=== PATIENT | male | born 1960 | race Caucasian/White ===

== ENCOUNTER → 2019-06-20 16:03 | Outpatient (CLI) | payer MEDICARE, SELFPAY ==
--- NOTE | 2019-06-20 16:17 | XR_ITS ---
PROCEDURE: XR CHEST 2V CLINICAL HISTORY: SOB Shortness of breath COMPARISON: No exams were available for comparison FINDINGS: The cardiomediastinal silhouette and pulmonary vascularity are within normal limits. Granuloma right lung base. Minimal atelectatic or fibrotic change left lung base. The remaining lungs are clear. There is a neuro stimulator device present. The tip is not visible on the film but is projected toward the neck. There are degenerative changes in the thoracic spine. No acute bony abnormalities. IMPRESSION: No acute findings. Dictated by: Pancho Marquez MD 06/20/2019 21:58 Electronically signed by Pancho Marquez MD in [place] 06/20/2019 21:58
== END ==
PROVIDERS: PCP Family Medicine; Visit Provider Family Medicine
DX: R06.02 Shortness of breath (principal)
CPT/HCPCS: 71046

== ENCOUNTER 2020-11-10 15:24 | Emergency (ER) | payer MEDICARE, SELFPAY ==
[2020-11-10 15:40] VITALS: BP 128/79; PULSE 87; RESP 19; TEMP 37; O2SAT 95; BMI 35.6
--- NOTE | 2020-11-10 16:12 | HMH.EDUTC ---
[facility] [place] Disposition Clinical Impression: Right ear impacted cerumen Disposition: Home, Self-Care Condition on Discharge: Good Instructions: How to Instill Ear Drops, DI for Cerumen Impaction Additional Instructions: Use the ear drops as directed. Return or follow up for any continued problems. Follow up with your primary care doctor. GO TO THE ER FOR ANY WORSENING SYMPTOMS OR CONCERNS. Prescriptions: Neomycin/Polymyxin B Sulf/Hc [Tnbwnwzn-Opzyknpvv-MX Otic Susp 10mL] 3 drops EAR-RIGHT TID 7 Days #1 bottle Transmission Status: Received by [facility] #[id number] Referrals: Penelope Bruce [Primary Care Provider] - Time of Disposition: 16:14 Medical Decision Making - Medical Records Medical records reviewed: No: I reviewed the patient's medical records. - Blayne Inquiry Pt receiving controlled substance: No Vital Signs: 11/10/20 15:40 11/10/20 16:16 Temperature 98.6 F 98.6 F Temperature Source Oral Pulse Rate 87 Pulse Rate [Right Brachial] 87 Respiratory Rate 19 19 Blood Pressure 128/79 Blood Pressure [Right Arm] 128/79 Blood Pressure Mean [Right Arm] 95 Blood Pressure Source [Right Arm] Automatic Cuff Blood Pressure Position [Right Arm] Sitting 02 Sat by Pulse Oximetry 95 Oxygen Delivery Method Room Air [facility] [place] HPI - General Time Seen by Provider: 11/10/20 15:40 Mode of Arrival: Ambulatory Source of Information: Patient Limitations: No Limitations Description of Symptoms (Recalled from Triage Doc. by RN): PATIENT C/O RIGHT EAR PAIN X 1 WEEK HEENT Symptoms (Recalled from RN notes): Yes Resp Symptoms (Recalled from RN notes): No Skin Symptoms (Recalled from RN notes): No MS Symptoms (Recalled from RN notes): No Functional Status (Recalled from RN notes): WNL - History of Present Illness Provider Complaint: He states that he has had decreased hearing and right ear discomfort for the past 3 days. He has a history of having cerumen impactions. He denies any fever or chills. - Related Data Home Medications Medication Instructions Recorded Confirmed amantadine HCl 100 mg capsule 100 mg PO BID 08/16/19 11/04/19 carbidopa 50 mg-levodopa 200 1 tab PO TID 08/16/19 11/04/19 mg-entacapone 200 mg tablet donepezil 10 mg tablet 10 mg PO DAILY 08/16/19 11/04/19 escitalopram oxalate 10 mg tablet 10 mg PO DAILY 08/16/19 11/04/19 finasteride 5 mg tablet 5 mg PO DAILY 08/16/19 11/04/19 furosemide 20 mg tablet 20 mg PO DAILY tab 08/16/19 11/04/19 pramipexole 1 mg tablet 1 mg PO TID tab 08/16/19 11/04/19 tamsulosin 0.4 mg capsule 0.4 mg PO DAILY 08/16/19 11/04/19 Previous Rx's Medication Instructions Recorded Neomycin/Polymyxin B Sulf/Hc 3 drops EAR-RIGHT TID 7 Days #1 11/10/20 [Xnyvtngl-Whwnzqtlh-BH Otic Susp bottle 10mL] Allergies Allergy/AdvReac Type Severity Reaction Status Date / Time acetaminophen Allergy Intermediate Verified 11/04/19 14:25 [From [facility] with Codeine] codeine Allergy Intermediate Verified 11/04/19 14:25 [From [facility] with Codeine] Sulfa (Sulfonamide Allergy Intermediate Verified 11/04/19 14:25 Antibiotics) - Worker's Comp Is this a Worker's Comp case?: No [facility] History - Hepatitis A Screen Drug use history?: No High risk sexual behaviors?: No History of sexually transmitted infection?: No Currently employed?: No Childcare worker?: No Do you have indoor plumbing?: Yes Do you have electricity?: Yes Attestation statement:: This patient has been screened for Hepatitis A risk factors. I have reviewed the patient's past medical history: Yes Medical History: Reports:: Hiatal Hernia Other Medical History: Reports: Arthritis Comment: Parkinson's disease Other Surgeries: Yes: No Previous Surgery, Hernia Repair Amputation: No Fractures: No Comment: deep brain stimulator, - Social History Smoking Status: Never smoker Alcohol Intake: never Substance Use Type: denies use Occupational Status: other Housing: hous
[2020-11-10 16:16] VITALS: BP 128/79; PULSE 87; RESP 19; TEMP 37; O2SAT 98
== END 2020-11-10 16:20 | disposition home or self-care (01) ==
PROVIDERS: Emergency Provider Nurse Practitioner Family; PCP Physician Assistant
DX: H61.21 Impacted cerumen, right ear (principal); G20 Parkinson's disease; Z88.2 Allergy status to sulfonamides; Z88.6 Allergy status to analgesic agent
CPT/HCPCS: G0463; 99202

== ENCOUNTER 2020-11-16 14:17 | Emergency (ER) | payer MEDICARE, SELFPAY ==
[2020-11-16 14:30] VITALS: BP 133/75; PULSE 83; RESP 23; TEMP 36.4; O2SAT 93; BMI 37.7
[2020-11-16 14:50] LABS: Apearance,Urine Clear (Clear); Bilirubin,Urine Negative (Negative); Blood, Urine Negative (Negative); Color,Urine Yellow (Yellow); Glucose,Urine (UA) Negative (Negative); Ketones,Urine Negative (Negative); Protein,Urine Negative (Negative); Specific Gravity, Urine 1.025 (1.005-1.030); UTC Leukocyte Esterase,Urine Negative (Negative); UTC Nitrate,Urine Negative (Negative); Urobilinogen,Urine 0.2 EU/dl (0.2)
[2020-11-16 14:51] LABS: Microscopic, Urine URINE MICROSCOPIC (MICROSCOPIC)
--- NOTE | 2020-11-16 14:54 | PC.NURSE ---
PATIENT SENT TO ER PER KAYLA ROSENBAUM APRN FOR FURTHER EVALUATION. REPORT GIVEN TO Jina MARTINEZ RN
[2020-11-16 14:58] LABS: Appearance,Urine CLEAR (Clear); Bilirubin,Urine Negative (Negative); Blood, Urine Negative (Negative); Color,Urine YELLOW (Yellow); Glucose,Urine (UA) Negative (Negative); Ketones,Urine Negative (Negative); Leukocyte Esterase,Urine Negative (Negative); Nitrate,Urine Negative (Negative); PH,Urine 5.5 (5.0-8.5); Protein,Urine Negative (Negative); Specific Gravity, Urine 1.025 (1.005-1.030); Urobilinogen,Urine 0.2 EU/dl (0.2)
--- NOTE | 2020-11-16 15:06 | CT_ITS ---
PROCEDURE: CT HEAD/BRAIN WO CON CLINICAL INDICATION: fall w/confusion COMPARISON: No exams were available for comparison TECHNIQUE: Axial images obtained. All CT scans at the facility use one or more dose reduction, viz: automated exposure control, ma/kV adjustment per patient size (including targeted exams where dose is matched to indication, i.e. head), or iterative reconstruction technique. FINDINGS: Deep brain stimulator leads are noted in the bilateral thalami. No intra or extra-axial hemorrhage, space occupying lesion or acute infarct. The ventricles are normal in size, shape and symmetry. The issa-white matter differentiation is within normal limits. Brain parenchymal volume is appropriate for the age of the patient. Minor atherosclerotic vascular calcification. Visualized osseous structures are unremarkable. Mastoid air cells are unremarkable. Mucous retention cyst in the left maxillary sinus is partially visualized. IMPRESSION: No acute intracranial process. Deep brain stimulator leads are noted bilaterally. Dictated by: Tameka Leggett 11/16/2020 15:50 Tameka Leggett in [place] 11/16/2020 15:50
[2020-11-16 15:07] VITALS: BP 133/75; PULSE 80; RESP 16; TEMP 36.4; O2SAT 94; BMI 37.6
--- NOTE | 2020-11-16 15:14 | HMH.EDFALL ---
ED Disposition Clinical Impression: Concussion without loss of consciousness Qualifiers: Encounter type: initial encounter Qualified Code(s): S06.0X0A - Concussion without loss of consciousness, initial encounter Disposition: Home, Self-Care Condition on Discharge: Good Instructions: How to Prevent Falls Referrals: Penelope Bruce [Primary Care Provider] - - Critical Care Critical Care Time: No Attestation: On 11/16/20, the high probability of a clinically significant, sudden or life threatening deterioration of the following system(s) required my full and direct attention, intervention and personal management. The time I documented below is in addition to time spent performing reported procedures but includes the following listed in this critical care notation. Medical Decision Making - Medical Records Medical records reviewed: Yes: I reviewed the patient's medical records. - Blayne Inquiry Pt receiving controlled substance: No Vital Signs: 11/16/20 14:30 11/16/20 15:07 Temperature 97.6 F 97.6 F Temperature Source Oral Oral Pulse Rate [Right Brachial] 83 80 Respiratory Rate 23 16 Blood Pressure [Right Arm] 133/75 133/75 Blood Pressure Mean [Right Arm] 94 94 Blood Pressure Source [Right Arm] Automatic Cuff Automatic Cuff Blood Pressure Position [Right Arm] Sitting 02 Sat by Pulse Oximetry 93 L 94 L Oxygen Delivery Method Room Air Room Air - Lab Data Lab Results 11/16/20 14:27: Urine Color Yellow, Urine Appearance Clear, Urine pH 5.0, Ur Specific [place] 1.025, Urine Protein Negative, Urine Glucose (UA) Negative, Urine Ketones Negative, Urine Blood Negative, Urine Nitrate Negative, Urine Bilirubin Negative, Urine Urobilinogen 0.2, Ur Leukocyte Esterase Negative 11/16/20 14:40: Urine Color Yellow, Urine Appearance Clear, Urine pH 5.5, Ur Specific [place] 1.025, Urine Protein Negative, Urine Glucose (UA) Negative, Urine Ketones Negative, Urine Blood Negative, Urine Nitrate Negative, Urine Bilirubin Negative, Urine Urobilinogen 0.2, Ur Leukocyte Esterase Negative, Urine RBC None, Urine WBC 3-5, Ur Squamous Epith Cells 3-5, Urine Bacteria 1+, Urine Mucus 1+ 11/16/20 15:05: WBC 8.2, RBC 4.86, Hgb 14.9, Hct 42.8, MCV 88.2, MCH 30.6, MCHC 34.7, RDW 14.2, Plt Count 292, MPV 7.7, Neut % (Auto) 66.1, Lymph % (Auto) 26.6, [place] % (Auto) 4.7, Eos % (Auto) 1.9, Baso % (Auto) 0.8, Neut # (Auto) 5.4, Lymph # (Auto) 2.2, [place] # (Auto) 0.4, Eos # (Auto) 0.2, Baso # (Auto) 0.1 11/16/20 15:05: Sodium 139, Potassium 3.8, Chloride 104, Carbon Dioxide 27, Anion Gap 11.8, BUN 20, Creatinine 0.80, Estimated Creat Clear 175, Estimated GFR 99, Est GFR ( Amer) 119, Glucose 127 H, Calcium 9.6, Total Bilirubin 0.8, AST 42, ALT 12, Alkaline Phosphatase 59, Total Protein 7.5, Albumin 4.6, Globulin 2.9, Albumin/Globulin Ratio 1.6 Result diagrams: 11/16/20 15:05 11/16/20 15:05 - CT Data CT Scan: Head Time Received: 16:[address] Reviewed: Yes: I have reviewed the patient's CT results, I have viewed the radiologist's interpretation Findings Narrative: IMPRESSION: No acute intracranial process. Deep brain stimulator leads are noted bilaterally. - Reevaluation(s) Time: 16:04 Reevaluation #1: On reevaluation, patient is feeling fine. There is no urinary tract infection. CT unremarkable. Patient is to follow-up with neurology. Given strict return precautions. Verbalized understanding. Medical Decision Narrative: 60-year-old male presented to the emergency department after accidental fall. Patient is having some confusion. Meets imaging criteria for the head. Work-up initiated. Fall HPI - General Chief Complaint: Fall Stated Complaint: poss UTI Time Seen by Provider: 11/16/20 14:35 Mode of Arrival: Wheelchair Source of Information: Patient, Significant Other, Relative Limitations: No Limitations Description of Symptoms (Recalled from ER Triage Doc. by RN): SPOKE WITH PATIENT'S ON PHONE. SHE STATES THAT LEDY
[2020-11-16 15:16] LABS: Bacteria,Urine 1+ /lpf; Mucus,Urine 1+ /lpf
[2020-11-16 15:26] LABS: Basophils # 0.1 K/mm3 (0-0.2); Basophils % 0.8 % (0.1-2.0); Eosinophils # 0.2 K/mm3 (0.0-0.4); Eosinophils % 1.9 % (0.1-12.0); Hematocrit 42.8 % (42.0-52.0); Hemoglobin 14.9 g/dL (14.1-18.0); Lymphocytes # 2.2 K/mm3 (0.7-4.5); Lymphocytes % 26.6 % (10-50); Mean Corpuscular HGB Conc 34.7 g/dL (31.8-35.4); Mean Corpuscular Hemoglobin 30.6 pg (27.0-31.2); Mean Corpuscular Volume 88.2 fl (80-94); Mean Platelet Volume 7.7 fl (7.4-10.4); Monocytes # 0.4 K/mm3 (0.1-1.0); Monocytes % 4.7 % (1.7-9.3); Neutrophils # 5.4 K/mm3 (1.8-7.8); Neutrophils % 66.1 % (37.0-80.0); Platelet Count 292 K/mm3 (142-424); Red Blood Count 4.86 M/mm3 (4.60-6.20); Red Cell Distribution Width 14.2 % (11.5-17.5); White Blood Count 8.2 K/mm3 (4.8-10.8)
[2020-11-16 15:28] LABS: Chloride 104 mmol/L (98-107); Potassium 3.8 mmoL/L (3.5-5.1); Sodium 139 mmol/L (136-145)
[2020-11-16 15:30] LABS: Alanine Aminotransferase 12 U/L (12-78); Aspartate Amino Transferase 42 U/L (17-59); Blood Urea Nitrogen 20 mg/dl (9-20); Creatinine Clearance Estimated 175 mL/min (50-200); Estimated Glomerular Filt Rate 99 ml/min (>60); GFR (African American) 119 ML/MIN (>60)
[2020-11-16 15:31] LABS: Albumin Level 4.6 g/dl (3.5-5.0); Albumin/Globulin Ratio 1.6 (1.1-1.8); Alkaline Phosphatase 59 U/L (38-126); Anion Gap 11.8 mEq/L (5-15); Bilirubin,Total 0.8 mg/dl (0.2-1.3); Calcium 9.6 mg/dl (8.4-10.2); Carbon Dioxide 27 mmol/L (22.0-30.0); Globulin 2.9 g/dL (1.3-3.2); Glucose 127 mg/dl (74-100); Total Protein,Serum 7.5 g/dl (6.3-8.2)
--- NOTE | 2020-11-16 16:20 | PC.NURSE ---
pt assisted to restroom
[2020-11-16 16:54] VITALS: BP 123/84; PULSE 83; RESP 20; TEMP 36.4; O2SAT 94
== END 2020-11-16 16:55 | disposition home or self-care (01) ==
LOC: UTC 14:22 → ER 14:55
PROVIDERS: Emergency Medicine; Emergency Provider Nurse Practitioner Family; PCP Physician Assistant
DX: S06.0X0A Concussion without loss of consciousness, initial encounter (principal); W01.0XXA Fall on same level from slipping, tripping and stumbling without subsequent striking against object, initial encounter; Y92.019 Unspecified place in single-family (private) house as the place of occurrence of the external cause
CPT/HCPCS: 70450; 80053; 81001; 81003; 85025; 99283